=== PATIENT | female | born 2000 | race Caucasian/White ===

== ENCOUNTER → 2022-05-07 | Outpatient (CLI) | payer BC, MEDICAID ==
[2022-05-07 15:09] LABS: BASO # 0.1 K/mm3 (0.0-0.2); BASO % 0.6 % (0.0-2.0); EOS # 0.1 K/mm3 (0.0-0.7); EOS % 1.1 % (0.0-4.0); GRAN # 4.8 K/mm3 (1.4-6.5); GRAN % 60.3 % (42.2-75.2); HEMATOCRIT 45.9 % (35.0-45.0); HEMOGLOBIN 15.4 g/dl (12.0-15.0); LYMPH # 2.5 K/mm3 (1.2-3.4); LYMPH % 31.1 % (20.0-51.0); MEAN CELL VOLUME 91 fl (80.0-95.0); MEAN CORPUSCULAR HEMOGLOBIN 31 pg (26-32); MEAN CORPUSCULAR HGB CONC 34 g/dl (33.0-37.0); MEAN PLATELET VOLUME 9.6 fl (7.4-10.4); MONO # 0.5 K/mm3 (0.1-0.6); MONO % 6.5 % (1.7-9.3); PLATELET COUNT 353 K/mm3 (130-400); RED BLOOD COUNT 5.04 M/mm3 (4.10-5.30); REDCELL DISTRIBUTION WIDTH-CV 12.2 % (11.5-14.5)
[2022-05-07 15:25] LABS: ALBUMIN 4.5 gm/dL (3.5-5.0); BILIRUBIN,TOTAL 1.1 mg/dL (0.2-1.2); CALCIUM 10.1 mg/dL (8.4-10.2); CREATININE, serum 0.78 mg/dL (0.57-1.11); POTASSIUM 3.6 mmol/L (3.5-4.5); TOTAL PROTEIN 7.9 gm/dL (6.2-8.1)
[2022-05-07 15:45] LABS: THYROID STIMULATING HORMONE 1.77 uIU/mL (0.350-4.940)
== END ==
LOC: COL.LAB 13:37
PROVIDERS: Physician Assistant Medical
DX: R07.89 Other chest pain (principal); R00.0 Tachycardia, unspecified